=== PATIENT | female | born 1935 | race Caucasian/White ===

== ENCOUNTER → 2018-02-05 11:24 | Outpatient (CLI) | payer OTHER, SELFPAY ==
[2018-02-05 12:15] LABS: Add Manual Diff / Slide Review NO; Basophils Percent Auto 0.4 % (0-2); Hematocrit 40.9 % (36-46); Hemoglobin 13.9 g/dL (12.0-16.0); Lymphocytes Percent Auto 17.8 % (25-40); Mean Corpuscular Hemoglobin 31.6 PG (26-34); Monocytes Percent Auto 6.2 % (3-14); Neutrophils Absolute Auto 5600 /uL (3000-5900); Neutrophils Percent Auto 73.6 % (50-75); Platelet Count 217 X10^3/uL (150-400); Red Cell Distribution Width 13.7 % (11.6-14.8); White Blood Cell Count 7.7 X10^3/uL (4.5-11.0)
[2018-02-05 12:55] LABS: Alanine Aminotransferase 33 IU/L (9-52); Albumin 4.1 g/dL (3.5-5.0); Albumin Globulin Ratio 1.4 (1.0-2.8); Alkaline Phosphatase 53 U/L (38-126); Aspartate Aminotransferase 29 IU/L (14-36); Bilirubin Total 0.7 mg/dL (0.2-1.3); Blood Urea Nitrogen 14 mg/dL (7-17); Carbon Dioxide 31 mmol/L (22-32); Chloride 101 mmol/L (98-107); Estimated Glomerular Filt Rate > 60.0 mL/min (>60); Glucose 88 mg/dL (80-110); HEMOLYSIS < 15 (0-50); Potassium 4.2 mmol/L (3.4-5.1); Sodium 141 mmol/L (137-145); Total Protein 7.1 g/dL (6.3-8.2)
== END ==
PROVIDERS: PCP Family Medicine; Visit Provider Internal Medicine
DX: R19.7 Diarrhea, unspecified (principal)
CPT/HCPCS: 36415; 80053; 85025; 87015; 87045; 87046; 87177; 87205; 87427; 87493

== ENCOUNTER → 2018-02-06 10:34 | Outpatient (CLI) | payer OTHER, SELFPAY | PROVIDERS: PCP Family Medicine; Visit Provider Internal Medicine | DX: R19.7 Diarrhea, unspecified (principal); Z53.9 Procedure and treatment not carried out, unspecified reason ==

== ENCOUNTER → 2018-05-01 15:17 | Outpatient (CLI) | payer OTHER, SELFPAY | PROVIDERS: PCP Family Medicine; Visit Provider Family Medicine | DX: Z12.11 Encounter for screening for malignant neoplasm of colon (principal) ==

== ENCOUNTER → 2018-05-06 14:16 | Outpatient (CLI) | payer OTHER, SELFPAY ==
[2018-05-06 15:55] LABS: Thyroid Stimulating Hormone 1.23 uIU/mL (0.47-4.68)
[2018-05-08 17:46] LABS: Fecal Immunochemical Test NOT DETECTED
== END ==
PROVIDERS: Family Medicine; PCP Family Medicine; Visit Provider Family Medicine
DX: Z12.11 Encounter for screening for malignant neoplasm of colon (principal); E03.9 Hypothyroidism, unspecified
CPT/HCPCS: 82274; 84443

== ENCOUNTER → 2018-06-13 13:22 | Outpatient (CLI) | payer OTHER, SELFPAY ==
--- NOTE | 2018-06-13 13:24 | DI.MG.S_ITS ---
BILATERAL DIGITAL SCREENING MAMMOGRAM 3D/2D WITH CAD: 06/13/2018 CLINICAL: Routine screening. Comparison is made to exams dated: 04/02/2017 mammogram, 03/28/2016 mammogram, and 03/21/2016 mammogram - [facility]. The tissue of both breasts is extremely dense, which lowers the sensitivity of mammography. Current study was also evaluated with a Computer Aided Detection (CAD) system. No significant masses, calcifications, or other findings are seen in either breast. There has been no significant interval change. IMPRESSION: NEGATIVE There is no mammographic evidence of malignancy. A 1 year screening mammogram is recommended.(06/14/2019) This exam was interpreted at Station ID: [id number]. NOTE: For mammograms, a report in lay terms will be sent to the patient. Approximately 15% of breast malignancies will not be visualized mammographically. In the management of a palpable breast mass, a negative mammogram must not discourage biopsy of a clinically suspicious lesion. Electronically Signed By: Romelia gar/jacque:06/13/2018 15:10:47 letter sent: Normal Exam ACR BI-RADS Category 1: Negative 3341F
== END ==
PROVIDERS: PCP Family Medicine; Visit Provider Family Medicine
DX: Z12.31 Encounter for screening mammogram for malignant neoplasm of breast (principal)
CPT/HCPCS: 77063; 77067

== ENCOUNTER → 2019-05-07 08:50 | Outpatient (CLI) | payer OTHER, SELFPAY ==
[2019-05-07 09:45] LABS: Alanine Aminotransferase 18 IU/L (9-52); Albumin 4.1 g/dL (3.5-5.0); Albumin Globulin Ratio 1.4 (1.0-2.8); Alkaline Phosphatase 52 U/L (38-126); Aspartate Aminotransferase 24 IU/L (14-36); BUN Creatinine Ratio 23.3 (6-22); Bilirubin Total 0.9 mg/dL (0.2-1.3); Blood Urea Nitrogen 14 mg/dL (7-17); Calcium 9.3 mg/dL (8.4-10.2); Carbon Dioxide 30 mmol/L (22-32); Chloride 102 mmol/L (98-107); Cholesterol 196 mg/dL (140-199); Estimated Glomerular Filt Rate > 60.0 mL/min (>60); Glucose 88 mg/dL (80-110); HDL Cholesterol 56 mg/dL (40-60); HEMOLYSIS < 15 (0-50); LDL Cholesterol Calculated 125 mg/dL (<100); Potassium 4.1 mmol/L (3.4-5.1); Sodium 139 mmol/L (137-145); Total Protein 7.1 g/dL (6.3-8.2); Triglycerides 75 mg/dL (35-150)
== END ==
PROVIDERS: PCP Family Medicine; Visit Provider Family Medicine
DX: E03.9 Hypothyroidism, unspecified (principal); J45.30 Mild persistent asthma, uncomplicated; M72.0 Palmar fascial fibromatosis [Dupuytren]
CPT/HCPCS: 36415; 80053; 80061; 84443

== ENCOUNTER → 2019-06-15 13:39 | Outpatient (CLI) | payer OTHER, SELFPAY ==
--- NOTE | 2019-06-15 | DI.MG.S_ITS ---
BILATERAL DIGITAL SCREENING MAMMOGRAM 3D/2D WITH CAD: 06/15/2019 CLINICAL: Routine screening. Comparison is made to exams dated: 06/13/2018 mammogram, 04/02/2017 mammogram, and 03/21/2016 mammogram - [facility]. The tissue of both breasts is extremely dense, which lowers the sensitivity of mammography. Current study was also evaluated with a Computer Aided Detection (CAD) system. No significant masses, calcifications, or other findings are seen in either breast. There has been no significant interval change. IMPRESSION: NEGATIVE There is no mammographic evidence of malignancy. A 1 year screening mammogram is recommended. This exam was interpreted at Station ID: [id number]. NOTE: For mammograms, a report in lay terms will be sent to the patient. Approximately 15% of breast malignancies will not be visualized mammographically. In the management of a palpable breast mass, a negative mammogram must not discourage biopsy of a clinically suspicious lesion. Electronically Signed By: Romelia gar/jacque:06/15/2019 14:56:51 letter sent: Normal Exam ACR BI-RADS Category 1: Negative 3341F
[2019-06-17 17:59] LABS: Fecal Immunochemical Test NOT DETECTED (NOT DETECTED)
== END ==
PROVIDERS: PCP Family Medicine; Visit Provider Family Medicine
DX: Z12.31 Encounter for screening mammogram for malignant neoplasm of breast (principal)
CPT/HCPCS: 77063; 77067; 82274

== ENCOUNTER → 2020-05-11 09:59 | Outpatient (CLI) | payer MEDICARE, SELFPAY ==
[2020-05-11 11:57] LABS: Alanine Aminotransferase 22 IU/L (<35); Albumin 4.2 g/dL (3.5-5.0); Albumin Globulin Ratio 1.4 (1.0-2.8); Alkaline Phosphatase 61 U/L (38-126); Aspartate Aminotransferase 32 IU/L (14-36); BUN Creatinine Ratio 22.2 (6-22); Bilirubin Total 0.8 mg/dL (0.2-1.3); Blood Urea Nitrogen 14 mg/dL (7-17); Calcium 9.5 mg/dL (8.4-10.2); Carbon Dioxide 27 mmol/L (22-32); Chloride 104 mmol/L (98-107); Cholesterol 181 mg/dL (140-199); Estimated Glomerular Filt Rate > 60.0 mL/min (>60); Globulin 2.9 g/dL (1.7-4.1); Glucose 85 mg/dL (80-110); HDL Cholesterol 73 mg/dL (40-60); HEMOLYSIS < 15 (0-50); LDL Cholesterol Calculated 93 mg/dL (<100); Potassium 4.4 mmol/L (3.4-5.1); Sodium 138 mmol/L (137-145); Total Protein 7.1 g/dL (6.3-8.2); Triglycerides 77 mg/dL (35-150)
[2020-05-11 12:31] LABS: TSH w/ Reflex to FT4 1.68 uIU/mL (0.47-4.68)
== END ==
PROVIDERS: PCP Family Medicine; Referring Provider Family Medicine; Visit Provider Family Medicine
DX: E03.9 Hypothyroidism, unspecified (principal); E78.5 Hyperlipidemia, unspecified
CPT/HCPCS: 36415; 80053; 80061; 84443

== ENCOUNTER → 2020-06-17 15:35 | Outpatient (CLI) | payer MEDICARE, SELFPAY ==
--- NOTE | 2020-06-17 15:41 | DI.MG.S_ITS ---
BILATERAL DIGITAL SCREENING MAMMOGRAM 3D/2D WITH CAD: 06/17/2020 CLINICAL: Routine screening. Comparison is made to exams dated: 06/15/2019 mammogram, 06/13/2018 mammogram, and 04/02/2017 mammogram - [facility]. The tissue of both breasts is extremely dense, which lowers the sensitivity of mammography. Current study was also evaluated with a Computer Aided Detection (CAD) system. No significant masses, calcifications, or other findings are seen in either breast. There has been no significant interval change. IMPRESSION: NEGATIVE There is no mammographic evidence of malignancy. A 1 year screening mammogram is recommended. This exam was interpreted at Station ID: [id number]. NOTE: For mammograms, a report in lay terms will be sent to the patient. Approximately 15% of breast malignancies will not be visualized mammographically. In the management of a palpable breast mass, a negative mammogram must not discourage biopsy of a clinically suspicious lesion. Electronically Signed By: Jerel almaguer/jacque:06/17/2020 18:37:45 letter sent: Normal Exam ACR BI-RADS Category 1: Negative 3341F
[2020-06-20 07:41] LABS: Fecal Immunochemical Test Negative (Negative)
== END ==
PROVIDERS: PCP Family Medicine; Referring Provider Family Medicine; Visit Provider Family Medicine
DX: Z12.31 Encounter for screening mammogram for malignant neoplasm of breast (principal); Z12.4 Encounter for screening for malignant neoplasm of cervix
CPT/HCPCS: 77063; 77067; 82274

== ENCOUNTER 2020-08-08 10:24 | Emergency (ER) | payer MEDICARE, SELFPAY ==
[2020-08-08 10:36] VITALS: BP 163/72; PULSE 79; RESP 16; TEMP 36.4; O2SAT 97
--- NOTE | 2020-08-08 10:39 | DI.US.S_ITS ---
PROCEDURE: US PERIPH VENOUS LOW EXTREM RT INDICATIONS: SWELLING AND PAIN TECHNIQUE: Real-time imaging, as well as color and pulse Doppler interrogation, were performed of the lower extremity deep veins from the inguinal ligament to the popliteal fossa. COMPARISON: None. FINDINGS: The common femoral, femoral and popliteal veins are normally compressible, and free of intraluminal thrombus. Color and pulse Doppler demonstrate normal phasic intraluminal flow. There is normal augmentation response to distal compression maneuver. Thrombosed superficial varicosities can be seen within the calf, which corresponds to the areas of pain and swelling. IMPRESSION: Negative for deep venous thrombosis. Thrombosed superficial varicosities within the calf correspond to the areas of pain. Dictated by: Hugo Ortega M.D. on 08/08/2020 at 10:40 Approved by: Hugo Ortega M.D. on 08/08/2020 at 10:41
--- NOTE | 2020-08-08 13:21 | ED_ITS ---
HPI - Extremity Problem <Eileen Menjivar, PROFESSOR OF SPORT MANAGEMENT-BC - Last Filed: 08/08/20 14:08> General Chief complaint: Extremity Problem,Nontraumatic Stated complaint: BLOOD CLOT IN RIGHT LEG Time Seen by Provider: 08/08/20 12:12 Source: patient Mode of arrival: Ambulatory Limitations: no limitations History of Present Illness HPI Narrative: The patient is an 84-year-old female nonsmoker with history of va ricose veins presents with a chief complaint of a possible blood clot in her right leg. She states that she is very, walking a lot, and she developed some painful bumps in her right leg. She denies any chest pain or shortness of breath. She does not use any blood thinners. 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 She has tried elevation, noticed it swelled up a little bit yesterday, but improved this morning. She has not used poxc-gjd-fxbqlbr medications at this point time. She denies any personal history of blood clots, but she has had family members by marriage have blood clots. Related Data Home Medications Medication Instructions Recorded Confirmed ascorbic acid (vitamin C) 1,000 mg PO QDAY #0 12/11/17 05/20/20 cholecalciferol (vitamin D3) 5,000 unit PO #0 12/11/17 05/20/20 magnesium oxide 400 mg PO BID #0 12/11/17 05/20/20 Previous Rx's Medication Instructions Recorded calcium carb,cit ER 600 mg 2 tab PO DAILY #60 tab 01/13/18 calcium-vit D3 500 unit tablet,ext.release glucosamine 750 mg-MSM 60 3 tab PO DAILY #30 tab 01/13/18 mg-chondroit 150 mg-hyaluron ac 1 mg tablet lactobacillus combo no.11 15 1 cap PO DAILY #30 cap 01/13/18 billion cell sprinkle capsule omega-3 fatty acids 500 mg capsule 1,000 mg PO DAILY #60 cap 01/13/18 varicella-zoster glycoE vacc-[id number] 0.5 ml IM ONCE #1 each 05/01/18 adj(PF) 50 mcg/0.5 mL IM susp, kit albuterol sulfate 90 mcg/actuation 2 puff INHALATION Q4HP PRN #1 inh 04/09/19 aerosol inhaler beclomethasone dipropionate 40 1 mcg INHALATION BID #1 inhalation 06/06/20 mcg/actuation aerosol inhaler levothyroxine 50 mcg tablet 50 mcg PO QAM #90 tab 06/06/20 fluticasone propionate 44 1 puff INHALATION BID #10.6 gram 06/30/20 mcg/actuation HFA aerosol inhaler Allergies Allergy/AdvReac Type Severity Reaction Status Date / Time No Known Allergies Allergy Uncoded 05/20/20 13:28 Review of Systems <SHERRIE Navarro - Last Filed: 08/08/20 14:08> Review of Systems Narrative: GENERAL: Denies chills, fatigue, malaise, fever, sweats. HEENT: Denies sinus pain, ear pain, sore throat, difficulty swallowing, dizziness. RESPIRATORY: Denies dyspnea, cough, wheezing, hemoptysis, sputum. CARDIOVASCULAR: Denies chest pain, palpitations, orthopnea, edema, GASTROINTESTINAL: Denies nausea, vomiting, abdominal pain, diarrhea, constipation, melena. : Denies dysuria, frequency, incontinence, hematuria, urinary retention. MUSCULOSKELETAL: See HPI SKIN: See HPI NEUROLOGIC: Denies weakness, headache, numbness, change in speech, confusion, seizures, incoordination. PSYCHIATRIC: No concerning psychosocial issues. 12 point review of systems is negative except for those stated above Patient History <SHERRIE Navarro - Last Filed: 08/08/20 14:08> Medical History Asthma (1955) Cataract (2000) Chicken pox (1954) Dupuytren's contracture Hayfever (1955) Hearing loss in right ear (1993) Hypothyroidism (05/2006) Measles (1947) Mild persistent asthma without complication (12/11/17) Mumps (194) Osteopenia of left hip (04/20/16) Plantar warts (1953) Shingles (2010) Surgical History Anesthesia History of cataract removal with insertion of prosthetic lens (2000) History of cataract removal with insertion of prosthetic lens (2016) Status post delivery (1964) Status post delivery (1967) Status post sclerotherapy of varicose veins (1984) Family History Father Heart disease Tobacco use Mother Heart disease Tobacco use Grandfather Pneumonia Grandmother No problems noted. Grandfather No problems noted. Grandmother No problems noted. Daughter Ovarian cancer Social History Smoking Status: Never smoker Smoking Status: Never smoker alcohol intake frequency: 0-2 drinks per day Substance Use Type: does not use Exam <SHERRIE Navarro - Last Filed: 08/08/20 14:08> Narrative Exam Narrative: GENERAL: This is a well-nourished, well-developed patient, in no acute distress HEAD: Atraumatic. Normocephalic. No temporal or scalp tenderness. EYES: Pupils equal round and reactive. Extraocular motions intact. No scleral icterus. No injection or drainage. ENT: Nose without bleeding, purulent drainage or septal hematoma. Wearing a mask. Airway patent. NECK: Trachea midline. No JVD or lymphadenopathy. Supple, nontender, no meningeal signs. CARDIOVASCULAR: Regular rate and rhythm RESPIRATORY: Clear to auscultation. Breath sounds equal bilaterally. No wheezes, rales, or rhonchi. No cough. No increased respiratory effort. No accessory muscle use. GASTROINTESTINAL: Abdomen soft, non-tender, nondistended. No hepato-sp lenomegaly, or palpable masses. No guarding. EXTREMITIES: Positive pedal pulses bilaterally. Varicosities noted bilateral lower extremities. Palpable varicose veins on medial aspect of right lower leg. No extending erythema or ecchymosis. Moving both feet. Stable gait. BACK: Nontender without deformity or crepitance. No flank tenderness. NEURO: AOx3. SKIN: See extremity exam Initial Vital Signs Initial Vital Signs: Vital Signs Temperature 97.6 F 08/08/20 10:36 Pulse Rate 79 08/08/20 10:36 Respiratory Rate 16 08/08/20 10:36 Blood Pressure 163/72 H 08/08/20 10:36 Pulse Oximetry 97 08/08/20 10:36 <Joyce Guan DO - Last Filed: 08/13/20 18:10> Initial Vital Signs Initial Vital Signs: Vital Signs Temperature 97.6 F 08/08/20 10:36 Pulse Rate 79 08/08/20 10:36 Respiratory Rate 16 08/08/20 10:36 Blood Pressure 163/72 H 08/08/20 10:36 Pulse Oximetry 97 08/08/20 10:36 Scores <Eileen SHERRIE Menjivar - Last Filed: 08/08/20 14:08> GCS Stevan coma scale eye opening: Spontaneous [place] coma scale verbal response: Orientated Stevan coma scale motor response: Obey commands Stevan coma scale total score: 15 Course <SHERRIE Navarro - Last Filed: 08/08/20 14:08> Orders Ordered: ED Orders 08/08/20 10:39 US periph venous low extrem rt Stat Vital Signs Vital signs: Vital Signs - 8 hr 08/08/20 10:36 Temperature 97.6 F Pulse Rate 79 Respiratory Rate 16 Blood Pressure 163/72 H Pulse Oximetry 97 <Joyce Guan DO - Last Filed: 08/13/20 18:10> Orders Ordered: ED Orders 08/08/20 10:39 US perip venous low extrem rt Stat Vital Signs Vital signs: Vital Signs - 8 hr 08/08/20 10:36 Temperature 97.6 F Pulse Rate 79 Respiratory Rate 16 Blood Pressure 163/72 H Pulse Oximetry 97 MDM - Extremity (Nontraumatic) <SHERRIE Navarro - Last Filed: 08/08/20 14:08> Imaging Data US - DVT: Radiologist's Impression: [address] [place] [id number] ReportSigned Patient: Carlos Daniel [facility]#: [id number]: 8Acct:[id number]/Sex: 84 / FDate of Service: 08/08/20Loc: EDAccession Number: [id number] Procedure: US periph venous low extrem rt Ordering Provider: Joyce Guan D.O. PROCEDURE: US PERIPH VENOUS LOW EXTREM RT INDICATIONS: SWELLING AND PAIN TECHNIQUE: Real-time imaging, as well as color and pulse Doppler interrogation, were performed of the lower extremity deep veins from the inguinal ligament to the popliteal fossa. COMPARISON: None. FINDINGS: The common femoral, femoral and popliteal veins are normally compressible, and free of intraluminal thrombus. Color and pulse Doppler demonstrate normal phasic intraluminal flow. There is normal augmentation response to distal compression maneuver. Thrombosed superficial varicosities can be seen within the calf, which corre sponds to the areas of pain and swelling. IMPRESSION: Negative for deep venous thrombosis. Thrombosed superficial varicosities within the calf correspond to the areas of pain. Dictated by: Hugo Ortega M.D. on 08/08/2020 at 10:40 Approved by: Hugo Ortega M.D. on 08/08/2020 at 10:41 [facility] Narrative Medical decision making narrative: Patient is an 84-year-old female who presents with a chief complaint of possible DVT of her right leg. She has a negative ultrasound, though findings consistent with thrombosed superficial her cough for the. She has no chest pain or shortness of breath, no personal history of blood clots. I discussed at length that she may benefit from nzrq-doz-pnbncgh medica tions as needed and able as well as rest ice compression elevation. Encouraged follow-up with primary care provider in the next few days and come back to the ER for acute concerns such as chest pain, shortness of breath etcetera. Discharge Plan Departure Patient Disposition: Home Clinical Impression: Superficial varicosities Instructions: DI for Superficial Thrombophlebitis Activity Restrictions/Additional Instructions: Thank you for trusting us with your care today. As discussed, your ultrasound shows no evidence of a deep vein thrombosis. You do however have thrombosed superficial varicose veins. Please do not need blood thinners, but you are welcome to follow up with primary care provider. You may benefit from a vein center. As discussed, please come back to the emergency department for any acute concerns such as chest pain, shortness of breath etcetera Prescriptions: No Action magnesium oxide 400 MG tablet 400 mg PO BID Qty: 0 RF: 0 ascorbic acid (vitamin C) 500 MG tablet 1,000 mg PO QDAY Qty: 0 RF: 0 cholecalciferol (vitamin D3) 5,000 UNIT capsule 5,000 unit PO Qty: 0 RF: 0 omega-3 fatty acids 500 mg capsule 1,000 mg PO DAILY Qty: 60 RF: 0 calcium carb and citrate-vitD3 [Citracal-D3 Slow Release] 600 mg calcium- 500 unit tablet extended release 2 tab PO DAILY Qty: 60 RF: 0 lactobacillus combo no.11 [Probiotic] 15 billion cell capsule, sprinkle 1 cap PO DAILY Qty: 30 RF: 0 txnelump-NNN-ucqvl-hyaluron ac 180-04-722-1 mg tablet 3 tab PO DAILY Qty: 30 RF: 0 albuterol sulfate [Proventil HFA] 90 mcg/actuation HFA aerosol inhaler 2 puff Inhalation Q4HP PRN (Reason: shortness of breath or wheezing) Qty: 1 RF: 5 beclomethasone dipropionate 40 mcg/actuation aerosol 1 mcg inhalation BID Qty: 1 RF: 11 levothyroxine 50 mcg tablet 50 mcg PO QAM Qty: 90 RF: 2 fluticasone propionate 44 mcg/actuation HFA aerosol inhaler 1 puff INHALATION BID Qty: 10.6 RF: 0 varicella-zoster gE-AS01B (PF) [Shingrix (PF)] 50 mcg/0.5 mL suspension for reconstitution 0.5 ml IM ONCE Qty: 1 RF: 0 Referrals: Sanna Pearce DO [Primary Care Provider] - <Joyce Guan DO - Last Filed: 08/13/20 18:10> Cosign ED Attending Matthewature Attestation: I was immediately available in the department for consultation. Documentation has been reviewed. I agree with assessment and plan.
== END 2020-08-08 13:41 | disposition home or self-care (01) ==
PROVIDERS: Emergency Provider Nurse Practitioner Family; PCP Family Medicine
DX: I83.91 Asymptomatic varicose veins of right lower extremity (principal)
CPT/HCPCS: 93971; 99283

== ENCOUNTER → 2021-01-17 13:05 | Outpatient (CLI) | payer MEDICARE, SELFPAY | PROVIDERS: PCP Family Medicine; Referring Provider Family Medicine; Visit Provider Family Medicine | DX: Z78.0 Asymptomatic menopausal state (principal); Z13.820 Encounter for screening for osteoporosis; M85.851 Other specified disorders of bone density and structure, right thigh; E07.9 Disorder of thyroid, unspecified | CPT/HCPCS: 77080 ==

== ENCOUNTER → 2021-06-20 11:12 | Outpatient (CLI) | payer MEDICARE, SELFPAY ==
--- NOTE | 2021-06-20 | DI.MG.S_ITS ---
BILATERAL DIGITAL SCREENING MAMMOGRAM 3D/2D WITH CAD: 06/20/2021 CLINICAL: Routine screening. Comparison is made to exams dated: 06/17/2020 mammogram, 06/15/2019 mammogram, and 06/13/2018 mammogram - [facility]. The tissue of both breasts is extremely dense, which lowers the sensitivity of mammography. Current study was also evaluated with a Computer Aided Detection (CAD) system. There are benign calcifications in both breasts. No significant masses, calcifications, or other findings are seen in either breast. There has been no significant interval change. IMPRESSION: BENIGN There is no mammographic evidence of malignancy. A 1 year screening mammogram is recommended. This exam was interpreted at Station ID: [id number]. NOTE: For mammograms, a report in lay terms will be sent to the patient. Approximately 15% of breast malignancies will not be visualized mammographically. In the management of a palpable breast mass, a negative mammogram must not discourage biopsy of a clinically suspicious lesion. Electronically Signed By: Cleveland Penny acr/ernestorad:06/20/2021 11:30:57 letter sent: Normal Exam ACR BI-RADS Category 2: Benign Finding(s) 3342F
== END ==
PROVIDERS: PCP Family Medicine; Referring Provider Family Medicine; Visit Provider Family Medicine
DX: Z12.31 Encounter for screening mammogram for malignant neoplasm of breast (principal)
CPT/HCPCS: 77063; 77067

== ENCOUNTER → 2021-08-14 12:31 | Outpatient (CLI) | payer MEDICARE, SELFPAY ==
[2021-08-14 13:48] LABS: BUN Creatinine Ratio 18.8 (6-22); Blood Urea Nitrogen 13 mg/dL (7-17); Calcium 10.3 mg/dL (8.4-10.2); Carbon Dioxide 31 mmol/L (22-32); Chloride 100 mmol/L (98-107); Estimated Glomerular Filt Rate > 60.0 mL/min (>60); Glucose 93 mg/dL (80-110); HEMOLYSIS < 15 (0-50); Potassium 4.5 mmol/L (3.4-5.1); Sodium 139 mmol/L (137-145)
[2021-08-14 14:14] LABS: TSH w/ Reflex to FT4 2.23 uIU/mL (0.47-4.68)
== END ==
PROVIDERS: PCP Family Medicine; Referring Provider Family Medicine; Visit Provider Family Medicine
DX: E03.9 Hypothyroidism, unspecified (principal)
CPT/HCPCS: 36415; 80048; 84443

== ENCOUNTER → 2022-06-22 14:34 | Outpatient (CLI) | payer MEDICARE, SELFPAY ==
--- NOTE | 2022-06-22 14:36 | DI.MG.S_ITS ---
BILATERAL DIGITAL SCREENING MAMMOGRAM 3D/2D WITH CAD: 06/22/2022 CLINICAL: Routine screening. Comparison is made to exams dated: 06/20/2021 mammogram, 06/17/2020 mammogram, and 06/15/2019 mammogram - [facility]. Both breasts are heterogeneously dense, which may obscure small masses (category c / 51-75% glandular tissue). Current study was also evaluated with a Computer Aided Detection (CAD) system. There are benign calcifications in both breasts. No significant masses, calcifications, or other findings are seen in either breast. There has been no significant interval change. IMPRESSION: BENIGN There is no mammographic evidence of malignancy. A 1 year screening mammogram is recommended. Based on the Tyrer Cuzick model (a risk assessment model) the patient's lifetime risk is 0.3% and her 10 year risk is 0.0%. According to the ACR, ACS, and NCCN guidelines, an annual breast MRI exam along with mammogram is recommended if the patient's lifetime risk is 20% or greater. This exam was interpreted at Station ID: [id number]. NOTE: For mammograms, a report in lay terms will be sent to the patient. Approximately 15% of breast malignancies will not be visualized mammographically. In the management of a palpable breast mass, a negative mammogram must not discourage biopsy of a clinically suspicious lesion. Electronically Signed By: Monisha asher/jacque:06/22/2022 17:56:17 letter sent: Normal Exam ACR BI-RADS Category 2: Benign Finding(s) 3342F
[2022-06-25 06:42] LABS: Fecal Immunochemical Test Negative (Negative)
== END ==
PROVIDERS: PCP Family Medicine; Referring Provider Pediatrics; Visit Provider Pediatrics
DX: Z12.31 Encounter for screening mammogram for malignant neoplasm of breast (principal); Z12.11 Encounter for screening for malignant neoplasm of colon; Z12.12 Encounter for screening for malignant neoplasm of rectum
CPT/HCPCS: 77063; 77067; 82274

== ENCOUNTER → 2023-02-11 11:47 | Outpatient (CLI) | payer MEDICARE, SELFPAY ==
[2023-02-11 13:39] LABS: Free T3, Triiodothyronine Free 3.73 pg/mL (2.77-5.27); Free T4, Direct Thyroxine 1.46 ng/dL (0.78-2.19)
[2023-02-11 13:52] LABS: Thyroid Stimulating Hormone 1.81 uIU/mL (0.47-4.68)
== END ==
PROVIDERS: PCP Family Medicine; Referring Provider Family Medicine; Visit Provider Family Medicine
DX: E03.9 Hypothyroidism, unspecified (principal)
CPT/HCPCS: 36415; 84439; 84443; 84481

== ENCOUNTER → 2023-07-04 16:02 | Outpatient (CLI) | payer MEDICARE, SELFPAY ==
--- NOTE | 2023-07-04 16:04 | DI.MG.S_ITS ---
BILATERAL DIGITAL SCREENING MAMMOGRAM 3D/2D WITH CAD: 07/04/2023 CLINICAL: Routine screening. Comparison is made to exams dated: 06/22/2022 mammogram, 06/20/2021 mammogram, and 06/17/2020 mammogram - [facility]. Both breasts are heterogeneously dense, which may obscure small masses (category c / 51-75% glandular tissue). Current study was also evaluated with a Computer Aided Detection (CAD) system. There are benign calcifications in both breasts. No significant masses, calcifications, or other findings are seen in either breast. There has been no significant interval change. IMPRESSION: BENIGN There is no mammographic evidence of malignancy. A 1 year screening mammogram is recommended. This exam was interpreted at Station ID: [id number]. NOTE: For mammograms, a report in lay terms will be sent to the patient. Approximately 15% of breast malignancies will not be visualized mammographically. In the management of a palpable breast mass, a negative mammogram must not discourage biopsy of a clinically suspicious lesion. Electronically Signed By: Jerel almaguer/jacque:07/05/2023 07:14:42 letter sent: Normal Exam ACR BI-RADS Category 2: Benign Finding(s) 3342F
== END ==
PROVIDERS: PCP Family Medicine; Referring Provider Family Medicine; Visit Provider Family Medicine
DX: Z12.31 Encounter for screening mammogram for malignant neoplasm of breast (principal)
CPT/HCPCS: 77063; 77067

== ENCOUNTER → 2023-09-04 14:30 | Outpatient (CLI) | payer MEDICARE, SELFPAY ==
--- NOTE | 2023-09-04 14:31 | DI.RAD.S_ITS ---
Bone Density Report Name: DIANN BARNEY Age: 87 Sex: Female Ethnicity: White Date of : 1935 Indication: osteopenia; parental hip fracture; Referring Provider: FRANCOISE HILTON Study: Bone densitometry was performed. Exam Date: September 04, 2023 Accession number: [id number] Bone Density: Region BMD T-score Z-score Classification AP Spine(L2, L3) 0.927 -1.2 1.7 Osteopenia Femoral Neck (Left) 0.731 -1.1 1.5 Osteopenia Total Hip (Left) 0.755 -1.5 0.8 Osteopenia Femoral Neck (Right) 0.646 -1.8 0.7 Osteopenia Total Hip (Right) 0.748 -1.6 0.7 Osteopenia Total Hip Mean 0.752 -1.6 0.8 Osteopenia World Health Organization criteria for BMD impression classify patients as: Normal (T-score at or above -1.0), Osteopenia (T-score between -1.0 and -2.5), or Osteoporosis (T-score at or below -2.5). 10-year Fracture Risk(1): Major Osteoporotic Fracture 23% Hip Fracture 15% Reported Risk Factors: [place] (), Neck BMD=0.646, BMI=19.8, parental fracture (1) FRAX(R) Version 3.08. Fracture probability calculated for an untreated patient. Fracture probability may be lower if the patient has received treatment. Previous Exams: -- Region Exam Age BMD T-score BMD Change BMD Change Date g/cm2 vs Baseline vs Previous -- AP Spine (L2-L3) 09/04/2023 87 0.927 -1.2 -0.186 (-16.7%)# -0.186 (-16.7%)# 01/17/2021 85 1.113 0.5 Total Hip(Left) 09/04/2023 87 0.755 -1.5 -0.058 (-7.1%)# -0.058 (-7.1%)# 01/17/2021 85 0.813 -1.1 Total Hip(Right) 09/04/2023 87 0.748 -1.6 -0.052 (-6.5%)# -0.052 (-6.5%)# 01/17/2021 85 0.800 -1.2 -- *Denotes significance at 95% confidence level, LSC for AP Spine = 0.022 g/cm2, LSC for Total Hip = 0.027 g/cm2 # Denotes dissimilar scan types or analysis methods Impression: The patient has low bone mass, based on the Right Femoral Neck T-score. The patient has an estimated ten-year risk of hip fracture of 15% and an estimated ten-year risk of major fracture of 23%, based on the WHO FRAX algorithm. The patient has risk factors, including: parental hip fracture. No significant bone loss was observed. Discussion: BONE DENSITY IS LOW AT ONE OR MORE SKELETAL SITES. THE PATIENT'S BMD AND CLINICAL RISK FACTORS CONTRIBUTE TO THIS PATIENT'S HIGH RISK OF FRACTURE. This patient's lowest T-score is low at one or more skeletal sites. It meets the World Health Organization's (WHO) criteria for low bone mass (T-score between -1.0 and -2.5). The patient's 10-year risk of hip fracture and 10 year risk of a major osteoporotic fracture as calculated by FRAX exceeds the threshold where pharmacological therapy is recommended by the National Osteoporosis Foundation (NOF). However, all treatment decisions require clinical judgment and consideration of individual patient factors, including patient preferences, comorbidities, previous drug use, risk factors not captured in the FRAX model (e.g., frailty, falls, vitamin D deficiency, increased bone turnover, interval significant decline in bone density) and possible under or overestimation of fracture risk by FRAX. The patient should follow a healthful lifestyle (good nutrition with adequate calcium and vitamin D, and appropriate weight-bearing exercise). Follow-Up: Consider a repeat BMD and Vertebral Fracture Assessment (VFA) exam in 2 years or sooner if medically necessary, to reassess this patient's status. Reported by: [facility] LEROY ZAPIEN M.D. on 09/04/2023 3:07:00 PM.
== END ==
PROVIDERS: PCP Family Medicine; Referring Provider Family Medicine; Visit Provider Family Medicine
DX: M85.851 Other specified disorders of bone density and structure, right thigh (principal); M85.852 Other specified disorders of bone density and structure, left thigh; N95.9 Unspecified menopausal and perimenopausal disorder
CPT/HCPCS: 77080

== ENCOUNTER → 2023-12-18 11:42 | Outpatient (CLI) | payer MEDICARE, SELFPAY ==
[2023-12-20 13:28] LABS: Fecal Immunochemical Test Negative (Negative)
== END ==
PROVIDERS: PCP Family Medicine; Referring Provider Family Medicine; Visit Provider Family Medicine
DX: Z12.11 Encounter for screening for malignant neoplasm of colon (principal)
CPT/HCPCS: 82274

== ENCOUNTER → 2024-04-10 14:23 | Outpatient (CLI) | payer MEDICARE, SELFPAY ==
[2024-04-10 15:10] LABS: BUN Creatinine Ratio 19.4 (6-22); Blood Urea Nitrogen 13 mg/dL (7-17); Calcium 9.5 mg/dL (8.4-10.2); Carbon Dioxide 27 mmol/L (22-32); Chloride 104 mmol/L (98-107); Estimated Glomerular Filt Rate > 60 mL/min (>60); Glucose 98 mg/dL (80-110); HEMOLYSIS < 15 (0-50); Sodium 138 mmol/L (137-145)
[2024-04-10 16:59] LABS: TSH w/ Reflex to FT4 1.04 uIU/mL (0.47-4.68)
== END ==
PROVIDERS: PCP Family Medicine; Referring Provider Family Medicine; Visit Provider Family Medicine
DX: E03.9 Hypothyroidism, unspecified (principal)
CPT/HCPCS: 36415; 80048; 84443

== ENCOUNTER → 2024-07-14 15:03 | Outpatient (CLI) | payer MEDICARE, SELFPAY ==
--- NOTE | 2024-07-14 15:04 | DI.MG.S_ITS ---
BILATERAL DIGITAL SCREENING MAMMOGRAM 3D/2D WITH CAD: 07/14/2024 CLINICAL: Routine screening. Comparison is made to exams dated: 07/04/2023 mammogram, 06/22/2022 mammogram, and 06/20/2021 mammogram - . The breasts are heterogeneously dense, which may obscure small masses (category c / 51-75% glandular tissue). Current study was also evaluated with a Computer Aided Detection (CAD) system. There are benign calcifications in both breasts. No significant masses, calcifications, or other findings are seen in either breast. Right breast scar marker. There has been no significant interval change. IMPRESSION: BENIGN There is no mammographic evidence of malignancy. A 1 year screening mammogram is recommended. This exam was interpreted at Station ID: [id number]. NOTE: For mammograms, a report in lay terms will be sent to the patient. Approximately 15% of breast malignancies will not be visualized mammographically. In the management of a palpable breast mass, a negative mammogram must not discourage biopsy of a clinically suspicious lesion. Electronically Signed By: Doni Whitman M.D. [facility] [place]/:07/14/2024 17:19:23 letter sent: Normal Exam ACR BI-RADS Category 2: Benign
== END ==
LOC: MAMMO 15:04
PROVIDERS: PCP Family Medicine; Referring Provider Family Medicine; Visit Provider Family Medicine
DX: Z12.31 Encounter for screening mammogram for malignant neoplasm of breast (principal); R92.333 Mammographic heterogeneous density, bilateral breasts
CPT/HCPCS: 77063; 77067

== ENCOUNTER → 2025-06-03 16:01 | Outpatient (CLI) | payer MEDICARE, SELFPAY | PROVIDERS: PCP Family Medicine; Referring Provider Family Medicine; Visit Provider Family Medicine | DX: Z12.11 Encounter for screening for malignant neoplasm of colon (principal) | CPT/HCPCS: 82274 ==

== ENCOUNTER → 2025-07-29 09:14 | Outpatient (CLI) | payer MEDICARE, SELFPAY ==
--- NOTE | 2025-07-29 09:16 | DI.MG.S_ITS ---
MM screening mammo BI: 07/29/2025. BI-RADS: 2 CLINICAL: 89-year old female for bilateral screening mammogram. No Tyrer-Cuzick risk score calculation due to patient's age being over 85 years old. No personal or first-degree family history of breast cancer. The patient had a prior right breast biopsy. PRIOR EXAMS 07/14/2024, 07/04/2023, 06/22/2022, 06/20/2021. MAMMOGRAPHY TECHNIQUE: 2D and 3D (tomosynthesis) digital mammographic views obtained, with additional images as needed for full coverage. Current study was also evaluated with a Computer Aided Detection (CAD) system. DENSITY C. The breasts are heterogeneously dense, which may obscure small masses. MAMMOGRAPHY FINDINGS Right: Benign-appearing post-surgical changes noted on the right. There are no suspicious masses, calcifications, or other findings in the breast. Left: No suspicious mass, asymmetry, microcalcification, or other abnormality seen. IMPRESSION: Right * No evidence of malignancy with benign findings. Left * No evidence of malignancy. RECOMMENDATIONS Bilateral * Annual screening mammography. OVERALL ASSESSMENT CATEGORY BI-RADS-2: Benign. The [employer] recommends annual screening mammography beginning at age 40 for women with average risk of breast cancer. ELECTRONICALLY SIGNED: Felisha Washington M.D. on 07/29/2025 at 05:29:51 PM PT Interpreting Station ID: [id number]
== END ==
LOC: MAMMO 09:15
PROVIDERS: PCP Family Medicine; Referring Provider Family Medicine; Visit Provider Family Medicine
DX: Z12.31 Encounter for screening mammogram for malignant neoplasm of breast (principal); R92.333 Mammographic heterogeneous density, bilateral breasts
CPT/HCPCS: 77063; 77067

== ENCOUNTER → 2025-09-07 12:23 | Outpatient (CLI) | payer MEDICARE, SELFPAY ==
--- NOTE | 2025-09-07 12:24 | DI.RAD.S_ITS ---
PROCEDURE: XR DEXA AXIAL SKELETON INDICATIONS: interval assessment COMPARISON: [facility], , XR DEXA AXIAL SKELETON, 09/04/2023, 14:55. [facility], CR, XR DEXA AXIAL SKELETON, 01/17/2021, 13:36. FINDINGS: Lumbar Spine: Bone mineral density 1.0-2 g/cm2, T score 0.0, decreased by 3.5%. Left Femoral Neck: Bone mineral density 0.771 g/cm2, T score -0.7. Left Hip: Bone mineral density 0.766 g/cm2, T score -1.4, no significant change compared to prior. Fracture Risk Calculation (when applicable): 10-year fracture risk of a major osteoporotic fracture 14 percent and of a hip fracture 8.1 percent. (T score greater or equal to -1.0 to: NORMAL) (T score from -1.1 to -2.4: OSTEOPENIA) (T score less than or equal to -2.5: OSTEOPOROSIS) IMPRESSION: Low bone mineral density (osteopenia) by WHO classification. Follow-up guidelines as follows: Osteoporosis: Consider a repeat DEXA and Vertebral Fracture Assessment (VFA) exam in 2 years or sooner if medically necessary, to reassess this patient's status. Osteopenia: Consider a repeat DEXA in 2-3 years to reassess this patient's status, or if there is a new clinical indication. Normal: Consider a repeat DEXA in 5 years or sooner, or if there is a new clinical indication. All treatment decisions require clinical judgment and consideration of individual patient factors, including patient preferences, comorbidities, previous drug use, risk factors not captured in the FRAX model (e.g., frailty, falls, vitamin D deficiency, increased bone turnover, interval significant decline in bone density ) and possible under- or over-estimation of fracture risk by FRAX. In addition, the NOF Guide recommends that FDA-approved medical therapies be considered in postmenopausal women and men age >= 50 years with a: * Hip or vertebral (clinical or morphometric) fracture * T-score of <=-2.5 at the spine or hip * Ten-year fracture probability by FRAX of >= 3% for hip fracture or >=20% for major osteoporotic fracture. Dictated by: Jose Miguel Rodriguez M.D. on 09/08/2025 at 8:28 Approved by: Jose Miguel Rodriguez M.D. on 09/08/2025 at 8:31
== END ==
LOC: RAD 12:24
PROVIDERS: PCP Family Medicine; Referring Provider Family Medicine; Visit Provider Family Medicine
DX: M85.89 Other specified disorders of bone density and structure, multiple sites (principal)
CPT/HCPCS: 77080